=== PATIENT | male | born 1950 | race Caucasian/White ===

== ENCOUNTER → 2021-02-03 12:03 | Outpatient (BNVA) | payer MEDICARE, SELFPAY | PROVIDERS: PCP Family Medicine; Referring Provider Family Medicine; Visit Provider Anesthesiology Pain Medicine | DX: M47.816 Spondylosis without myelopathy or radiculopathy, lumbar region (principal); M54.9 Dorsalgia, unspecified; M17.11 Unilateral primary osteoarthritis, right knee; Z96.651 Presence of right artificial knee joint; Z79.891 Long term (current) use of opiate analgesic | CPT/HCPCS: 99204 ==

== ENCOUNTER → 2021-03-24 10:04 | Outpatient (BNVA) | payer MEDICARE, SELFPAY | PROVIDERS: PCP Family Medicine; Visit Provider Anesthesiology Pain Medicine | DX: M54.9 Dorsalgia, unspecified (principal); M17.11 Unilateral primary osteoarthritis, right knee; Z87.891 Personal history of nicotine dependence; Z79.891 Long term (current) use of opiate analgesic | CPT/HCPCS: 99214 ==

== ENCOUNTER 2021-05-24 09:09 | Outpatient (CLI) | payer MEDICARE, SELFPAY ==
[2021-05-24 09:28] VITALS: BP 169/92; PULSE 93; RESP 14; TEMP 37.2; O2SAT 96
[2021-05-24 10:56] VITALS: BP 143/80; PULSE 82; RESP 16; O2SAT 96
== END 2021-05-24 15:50 | disposition home or self-care (01) ==
PROVIDERS: PCP Family Medicine; Visit Provider Internal Medicine
DX: U07.1 COVID-19 (principal)
CPT/HCPCS: 96365

== ENCOUNTER → 2022-04-25 12:43 | Outpatient (BNVA) | payer MEDICARE, SELFPAY | PROVIDERS: PCP Family Medicine; Visit Provider Nurse Practitioner Family | DX: I10 Essential (primary) hypertension (principal); R00.0 Tachycardia, unspecified; Z87.891 Personal history of nicotine dependence | CPT/HCPCS: 99213; 99214 ==

== ENCOUNTER → 2022-08-04 10:45 | Outpatient (BNVA) | payer MEDICARE, SELFPAY | PROVIDERS: PCP Family Medicine; Visit Provider Internal Medicine Cardiovascular Disease | DX: R07.9 Chest pain, unspecified (principal); R00.0 Tachycardia, unspecified; R00.2 Palpitations; Z87.891 Personal history of nicotine dependence; I10 Essential (primary) hypertension | CPT/HCPCS: 99213; 99214 ==

== ENCOUNTER 2022-09-20 13:17 | Emergency (ER) | payer MEDICARE, SELFPAY ==
[2022-09-20 13:25] VITALS: BP 146/83; PULSE 90; RESP 14; TEMP 36.5; O2SAT 97; BMI 29.2
--- NOTE | 2022-09-20 13:28 | ECG_ITS ---
[facility] Test Date: 2022-09-20 Pat Name: Lucio Higuera Department: Room: Gender: Male [employer]el [employer]: : 1950 Requested By: Faraz Freitas Order Number: [id number] Chris MD: Mahesh Barajas M.D. Measurements Intervals [place] Rate: 83 P: 54 MT: 154 QRS: 3 QRSD: 100 T: 64 QT: 338 QTc: 398 Interpretive Statements SINUS RHYTHM WITH OCCASIONAL SUPRAVENTRICULAR PREMATURE COMPLEXES No previous ECG available for comparison Electronically Signed On 09-20-2022 17:55:39 WET [employer] by Mahesh Barajas M.D. [id number]
--- NOTE | 2022-09-20 13:59 | W.ED.CHESTPA ---
HPI - Chest Pain General: Chief Complaint: Chest Pain Stated Complaint: Dr. Umana sent for chest pain Time Seen by Provider: 09/20/22 13:45 History of Present Illness: Patient comes in with chest pain. States he was seen at his primary care doctor's office today for chest pain that he has had off-and-on for the past year and was advised to come to the emergency department. States that the chest pain is left-sided pressure, off and on. Denies any history of cardiac disease. He does have a history of hypertension, diabetes. Physical exam is unremarkable. I talked to the patient about testing, and he states that he does not have time to wait for tests. He states he was under the impression he would show up and have somebody put some dye in his veins look at his heart real quick. It is unclear where he was told that this as he does not remember. I talked him at length about the testing process including blood work, EKG, and if that is normal the neck step would be stress test. I did tell him that if the test here were positive it would likely lead to an angiogram. He states he cannot take the time today to do that he needs to get home. I talked to him at length about possible complications for him leaving without testing, and he states he needs to go and will try to find another day when he can return. We will have him sign out AMA. Associated symptoms: Deny abdominal pain, dyspnea, fever(s), nausea, palpitations or vomiting Review of Systems Const: Denies: fever(s) or body aches Eyes: Denies: change in vision or blurry vision ENMT: Denies: throat pain or odynophagia Card: Reports: chest pain; Denies: palpitations Resp: Denies: dyspnea or productive cough GI: Denies: abdominal pain, nausea or vomiting : Denies: flank pain or dysuria Musc: Denies: neck pain or back pain Skin/Breast: Denies: rash or pruritus Neuro: Denies: headache(s) or numbness in extremities Psych: Denies: anxiety or change in appetite Endo: Denies: polyuria or excessive sweating PFSH ED PFSH: Medical History Diabetes mellitus HTN (hypertension) Hx of fracture of leg compuund fx left lower ext. 1973 Noncompliance Osteoarthritis Statin intolerance Surgical History Hx of knee surgery left knee done 2001 Dr. Oli Sanches [place] placement Family History Father Diabetes Heart disease Hypertension Stroke Social History Smoking and tobacco status: former smoker Alcohol intake: never Physical Exam Const: COMMON NORMALS: no acute distress, patient oriented x3, healthy appearing and alert HENMT: COMMON NORMALS: normocephalic and atraumatic HEAD & SCALP: normocephalic and atraumatic Eye: COMMON NORMALS: Equal, round and reactive pupils present and EOMs intact bilaterally PUPIL: Yes Equal, round and reactive pupils present Neck/C-Spine: COMMON NORMALS: full ROM and supple Resp: COMMON NORMALS: normal respiratory effort, No retractions and No use of accessory muscles Cardio: COMMON NORMALS: regular rate and regular rhythm RATE: regular rate RHYTHM: regular rhythm GI: COMMON NORMALS: Normal to inspection, nondistended, normoactive bowel sounds present, Soft to palpation and non-tender PALPATION: Yes Soft to palpation Back/Pelvis: COMMON NORMALS: thoracic and lumbar spine normal to inspection and no thoracic nor lumbar tenderness Extremity: COMMON NORMALS: normal to inspection and full ROM Neuro: COMMON NORMALS: patient oriented x3 SENSORIUM/ORIENTATION: Yes alert Psych: COMMON NORMALS: mental status grossly normal and cooperative Skin: COMMON NORMALS: no rashes or lesions noted and no wounds GENERAL SKIN EXAM: no rashes or lesions noted Course Vital Signs: Vital signs: Vital Signs Temperature 97.7 F 09/20/22 13:25 Pulse Rate 90 09/20/22 13:25 Respiratory Rate 14 09/20/22 13:25 Blood Pressure 146/83 09/20/22 13:25 Pulse Oximetry 97 09/20/22 13:25 Oxygen Delivery Me thod 09/20/22 13:25 MDM - Chest Pain Medical Decision Making Patient comes in with chest pain. States he was seen at his primary care doctor's office today for chest pain that he has had off-and-on for the past year and was advised to come to the emergency department. States that the chest pain is left-sided pressure, off and on. Denies any history of cardiac disease. He does have a history of hypertension, diabetes. Physical exam is unremarkable. I talked to the patient about testing, and he states that he does not have time to wait for tests. He states he was under the impression he would show up and have somebody put some dye in his veins look at his heart real quick. It is unclear where he was told that this as he does not remember. I talked him at length about the testing process including blood work, EKG, and if that is normal the neck step would be stress test. I did tell him that if the test here were positive it would likely lead to an angiogram. He states he cannot take the time today to do that he needs to get home. I talked to him at length about possible complications for him leaving without testing, and he states he needs to go and will try to find another day when he can return. We will have him sign out AMA. Discharge Plan Discharge Patient Disposition: Left Against Medical Advice Clinical Impression: Chest pain Condition: Stable Prescriptions: No Action nitroglycerin 0.4 mg tablet, sublingual 0.4 mg sublingual Q5M PRN (Reason: chest pain) Qty: 30 5RF Rx Instructions: do not exceed 3 doses per episode testosterone cypionate 200 mg/mL kit IM .EVERY 14 DAYS acetaminophen [Tylenol Extra Strength] 500 mg tablet 500 mg PO .5 tabs day PRN furosemide [Lasix] 20 mg tablet 10 mg PO DAILY PRN lisinopril-hydrochlorothiazide 10-12.5 mg tablet 1 tab PO DAILY ibuprofen 200 mg tablet 200 mg PO Q6H PRN BC Arthritis 1,000-65 mg powder in packet PO diltiazem HCl 180 mg capsule,extended release 24 hr 180 mg PO DAILY Qty: 30 6RF Referrals: Ashutosh Blake MD [Primary Care Provider] - Coding Level of Care Code 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
== END 2022-09-20 14:01 | disposition left against medical advice (07) ==
PROVIDERS: Emergency Provider Emergency Medicine; PCP Family Medicine
DX: R07.9 Chest pain, unspecified (principal); Z53.21 Procedure and treatment not carried out due to patient leaving prior to being seen by health care provider; E11.9 Type 2 diabetes mellitus without complications; I10 Essential (primary) hypertension; Z87.891 Personal history of nicotine dependence
CPT/HCPCS: 93005; 99283

== ENCOUNTER 2022-09-29 11:00 | Outpatient (CLI) | payer MEDICARE, SELFPAY ==
--- NOTE | 2022-09-29 11:11 | CT_ITS ---
WS: [id number] EXAMINATION: CT abdomen pelvis w con* [id number] REASON FOR EXAM: ABDOMINAL PAIN/FLANK PAIN COMPARISON: None available. ORDER DATE: 09/29/2022 11:46 AM TOTAL EXAM DLP: 1252.[address] scans at [facility] use at least one of these dose optimization techniques: automated e xposure control; mA and/or kV adjustment per patient size (includes targeted exams where dose is matc hed to clinical indication); or iterative reconstruction. TECHNIQUE: Transaxial imaging through the abdomen and pelvis was performed with 2-D reformats followi ng the intravenous administration of Omnipaque 350 100 ml FINDINGS: There are no acute changes in the visualized lung bases. Small hiatal hernia. There is no sign of pne umoperitoneum. The liver was unremarkable. The gallbladder, spleen and pancreas were unremarkable. There is a normal appearance of both adrenal glands. Bilateral renal cysts largest on the right 6 cm in diameter in the upper pole. The small bowel pattern is not significantly dilated and there are no significant air-fluid levels. There is a normal-appearing appendix. There is moderate fecal loading of the colon with scattered di verticulosis in the left colon. There is no ascites or increased cul-de-sac fluid. The urinary bladder as imaged is unremarkable. Prostatic calcifications and mild prostate enlargement. Bilateral fat-containing inguinal hernias There are degenerative disc and spine changes with generalized spondylosis. CT/CT abdomen pelvis w con* [id number] IMPRESSION: No acute abdominal findings. Ancillary findings as noted above.
[2022-09-29] MEDS: iohexol 350 mg/mL 500 mL Btl (per mL) IV (12:24)
[2022-09-29] MEDS: iohexol 350 mg/mL 500 mL Btl (per mL) PO (12:24)
== END 2022-09-29 11:01 | disposition home or self-care (01) ==
PROVIDERS: PCP Family Medicine; Visit Provider Nurse Practitioner Family
DX: R10.9 Unspecified abdominal pain (principal)
CPT/HCPCS: 74177; Q9967